=== PATIENT | male | born 1985 | race American Indian/Alaskan Native ===

== ENCOUNTER 2019-07-29 18:42 | Emergency (ER) | payer SELFPAY ==
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
[2019-07-29] MEDS ORDERED: HYDROcodone/ACETAMINOPHEN 5-325 MG TAB PO STA (21:20)
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
[2019-07-29 22:04] VITALS: BP 138/98
== END 2019-07-29 22:05 | disposition home or self-care (01) ==
LOC: ED 18:42
DX: S50.11XA Contusion of right forearm, initial encounter (principal); S96.912A Strain of unspecified muscle and tendon at ankle and foot level, left foot, initial encounter; Z98.890 Other specified postprocedural states; Z79.899 Other long term (current) drug therapy; V49.49XA Driver injured in collision with other motor vehicles in traffic accident, initial encounter; Y93.89 Activity, other specified; Y92.410 Unspecified street and highway as the place of occurrence of the external cause; Y99.8 Other external cause status